=== PATIENT | male | born 1985 | race Caucasian/White ===

== ENCOUNTER 2018-04-03 11:17 | Emergency (ER) | payer MEDICAID, OTHER ==
[2018-04-03] MEDS ORDERED: CIPROFLOXACIN HCL 500 MG TABLET PO ONE (11:24)
[2018-04-03 11:26] VITALS: BP 138/95
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
== END 2018-04-03 11:30 | disposition home or self-care (01) ==
LOC: ER 11:17
DX: Z20.811 Contact with and (suspected) exposure to meningococcus (principal); F17.200 Nicotine dependence, unspecified, uncomplicated
CPT/HCPCS: 99283